=== PATIENT | female | born 1950 | race Caucasian/White ===

== ENCOUNTER 2016-12-30 13:43 | Emergency (ER) | payer BC ==
--- NOTE | 2016-12-30 16:55 | ED ORDER SUMMARY ---
..... Patient: KENDRICK WALDRON OrderSheet [facility] VisitID: [id number] [place] [address] 66y, F Registration Date/Time: 12/30/2016 ORDER SHEET Weight: 64.4 kg (stated) Allergies: No Known Drug Allergy GENERAL ORDERS: Blood Culture (No) (N/A) Urgent (14:55 12/30/2016 Jessica HUGHES) (Ack 15:01 Sloane) (15:11 EHassan R.N.) CBC w Diff Urgent (14:55 12/30/2016 Jessica HUGHES) (Ack 15:01 Sloane) (15:11 EHassan R.N.) CMP Urgent (14:55 12/30/2016 Jessica HUGHES) (Ack 15:01 Sloane) (15:11 EHassan R.N.) UA-Culture if indicated Urgent (14:55 12/30/2016 Jessica HUGHES) (Ack 15:01 Sloane) (15:10 EHassan R.N.) Amylase Urgent (14:55 12/30/2016 Jessica HUGHES) (Ack 15:01 Sloane) (15:11 EHassan R.N.) Lipase Urgent (14:55 12/30/2016 Jessica HUGHES) (Ack 15:01 Sloane) (15:11 EHassan R.N.) Lactate, Serum Urgent (14:55 12/30/2016 Jessica HUGHES) (Ack 15:01 Sloane) (15:11 EHassan R.N.) Culture, Strep Screen Urgent (14:55 12/30/2016 Jessica HUGHES) (15:10 Raulito R.N.) Blood Culture (No) (N/A) Urgent (16:49 12/30/2016 Jessica HUGHES) (17:09 Jessica HUGHES) (Cancelled: Other17:09 Jessica HUGHES) Lactate, Serum Urgent (16:49 12/30/2016 Jessica HUGHES) (18:52 Raulito R.N.) MEDICATION ORDERS: Tylenol PO 1,000 mg (NOW) (16:33 12/30/2016 Raulito Causey verbal order read back to Jessica HUGHES) (16:36 Raulito WillsNShawn) IV FLUIDS: Cefepime IV 2 gm/50mL (NOW) (16:49 12/30/2016 Jessica HUGHES) (Ack 17:32 Edilma Smith.NShawn) (18:54 Raulito WillsNShawn) IV NS : initial bolus 500 mL (1000 mL/hr), then 125 mL/hr for 4h (NOW); Urgent (18:41 12/30/2016 Jessica HUGHES) (19:51 Raulito R.NShawn) Vancomycin IV 1.5 gm/500 mL (NOW) (18:41 12/30/2016 Jessica HUGHES) (19:52 Raulito R.N.) ORDER SHEET NOTES: [Electronically signed by Jed Lopez MD (21:12 12/30/2016)] [Electronically signed by Aisha Potter R.N. (22:37 12/30/2016)] [Electronically locked/signed by Aisha Potter R.N. (22:37 12/30/2016)]
--- NOTE | 2016-12-30 16:55 | ED CLINICAL REPORT ---
Clinical Report - Physicians/Mid Levels [facility] [address] [place] [address] 12/30/2016 13:47 Patient: KENDRICK WALDRON Time Seen: 14:13. Arrived- By private vehicle. Historian- patient. HISTORY OF PRESENT ILLNESS Chief Complaint: FEVER and SORE THROAT. This started about 3 days ago and is still present and now worse. It was gradual in onset and has been constant and waxing/waning. (The patient was recently diagnosed with breast cancer. She is receiving care under the direction of Dr. Zarco at [facility] in [place]. Her colleague Dr. Castillo says that the patient is being treated with Adriamycin and Cytoxan. Her first dose of this was 9 days ago. Additionally he says that she is on Granix and that they should be her ninth dose. The patient reports that she has had a little bit of mild nausea since the chemotherapy. Otherwise she felt well until 3 days ago when she started to develop a sore throat and pain with swallowing. She has also had some chills and sweats and feels as though she has a mild fever.). REVIEW OF SYSTEMS The patient has had a severe sore throat . It has been associated with pain upon swallowing, fever, chills, fatigue and nausea. She has experienced sweats. No calf pain, chest pain, cough, difficulty breathing or pedal edema. No palpitations, abdominal pain, black stools, bloody stools or constipation. No diarrhea or vomiting. All systems otherwise negative, except as recorded above. PAST HISTORY PCP - ESTEBAN GIFFORD Oncology - Carolee. Problems: Thyroid Disease. Hypercholesterolemia. Arthritis. Hypertension. Cancer. Additional Surgeries: Biopsy. Port implant . Medications: Synthroid Oral. Lovastatin Oral. Tylenol Oral. Claritin Oral. LORazepam Oral 0.5 mg, as needed. Prochlorperazine Maleate Oral 10 mg, 3x a day as needed. Zofran Oral 8 mg, 4x a day as needed. Allergies: No Known Drug Allergy. SOCIAL HISTORY Never smoker. Alcohol use. (rare). No drug use. FAMILY HISTORY Cancer in first-degree relative (father). ADDITIONAL NOTES The nursing notes have been reviewed. PHYSICAL EXAM Vital Signs: 12/30/2016 14:12 BP: 143/76. HR: 120. RR: 16. O2 saturation: 100%. Temp: 99.1 F. Pain level now: 10. Have been reviewed. Appearance: Alert. Eyes: Pupils equal, round and reactive to light. ENT: Pharyngeal erythema (Including the soft palate.). Ulcerations present. Right-sided tonsillar exudate, swelling and erythema. Left-sided tonsillar exudate, swelling and erythema. Neck: Normal inspection. CVS: Normal heart rate and rhythm. Heart sounds normal. Respiratory: No respiratory distress. Breath sounds normal. Abdomen: No visible injury. Soft and nontender. Bowel sounds normal. No organomegaly. No mass. Back: Normal inspection. No CVA tenderness. Skin: Skin warm and dry. Normal skin color. Normal skin turgor. Extremities: Extremities exhibit normal ROM. No calf tenderness. No lower extremity edema. LABS, X-RAYS, AND EKG Laboratory Tests: UA-Culture if indicated: (MAHESH: 12/30/2016 15:06) ( MsgRcvd 12/30/2016 15:59) Final results Test Result Flag Units (Reference) URINE COLOR YELLOW URINE APPEARANCE CLEAR URINE GLUCOSE NEGATIVE (NEGATIVE) URINE BILIRUBIN NEGATIVE (NEGATIVE) URINE KETONE NEGATIVE (NEGATIVE) URINE SPECIFIC GRAVITY <= 1.005 L (1.010-1.030) URINE PH 6.5 (5.0-8.0) URINE PROTEIN NEGATIVE (NEGATIVE) URINE UROBILINOGEN 0.2 EU/dL (0.2-1.0) URINE NITRITE NEGATIVE (NEGATIVE) URINE BLOOD NEGATIVE (NEGATIVE) URINE LEUK ESTERASE NEGATIVE (NEGATIVE) URINE RBC 0-1 rbc/hpf (0-1) URINE WBC 0-1 wbc/hpf (0-1) URINE EPITHELIAL CELLS 0-1 EPI/hpf (0-5) URINE BACTERIA NONE SEEN (NONE SEEN) URINE COMMENT CULT NOT INDICATED 1+ AMORPHOUSURINE CULTURES ARE SET-UP BASED ON THE FOLLOWING CRITERIA:POSITIVE NITRITEPOSITIVE LEUKOCYTE ESTERASEGREATER THAN 10 WHITE BLOOD CELLSMODERATE (2+) OR GREATER BACTERIA CBC w Diff: (MAHESH: 12/30/2016 15:15) ( MsgRcvd 12/30/2016 16:11) Final results Test Result Flag Units (Reference) WHITE BLOOD COUNT 0.7 *L K/uL (4.5-11.5) K/uLCRITICAL RESULTS CALLEDCalled to BRIAN MORA, 12/30/16 1538Were 2 patient identifiers used? YWas the result read back? Y RED BLOOD COUNT 3.87 L M/uL (4.00-5.20) HEMOGLOBIN 12.0 gm/dL (12.0-16.0) HEMATOCRIT 35.2 L % (36.0-46.0) MEAN CELL VOLUME 91 fL (80-100) MEAN CORPUSCULAR HGB 31 pg (26-34) MEAN CORPUSCULAR HGB CONC 34 g/dL (31-37) RED CELL DISTRIBUTION WIDTH 11.8 % (11.6-14.8) PLATELET COUNT 78 L K/uL (150-400) POLY % 25 L % (50-75) BAND % 0 % (0-8) LYMPH 67 H % (25-40) MONO 8 % (3-14) EOSINOPHIL % 0 % (0-4) BASOPHIL % 0 % (0-2) METAMYELOCYTE % 0 % (0-1) MYELOCYTE 0 % (0-1) OTHER CELL TYPE 0 RBC MORPHOLOGY NORMOCYTIC~~NORMOCHROMIC Lactate, Serum: (MAHESH: 12/30/2016 15:15) ( [facility] [place] Final results Test Result Flag Units (Reference) LACTIC ACID 1.0 mmol/L (0.4-2.0) CMP: (MAHESH: 12/30/2016 15:15) ( [facility] [place] 12/30/2016 15:38) Final results Test Result Flag Units (Reference) GLUCOSE 97 mg/dL (70-110) BUN 10 mg/dL (7-18) CREATININE 0.8 mg/dL (0.6-1.3) Estimated GFR >60 mL/min Estimated GFR- >60 mL/min Note: Persistent reduction over 3 months in eGFR<60 mL/min/1.73 m2 defines CKD. Patients with eGFR values>=60 mL/min/1.73 m2 may also have CKD if evidence ofpersistent proteinuria. Additional information may be foundat [email or web address].org. SODIUM 136 mmol/L (136-145) POTASSIUM 3.5 mmol/L (3.5-5.1) CHLORIDE 97 L mmol/L (98-107) CARBON DIOXIDE 30 mmol/L (21-32) CALCIUM 9.4 mg/dL (8.5-10.1) TOTAL PROTEIN 7.5 g/dL (6.4-8.2) ALBUMIN 3.8 g/dL (3.3-5.0) BILIRUBIN, TOTAL 0.5 mg/dL (0.0-1.0) ALKALINE PHOSPHATASE 69 U/L (46-116) AST (SGOT) 17 U/L (15-37) ALT (SGPT) 32 U/L (12-78) LIPASE 241 U/L (73-393) AMYLASE 66 U/L (25-115) Culture, Strep Screen: (MAHESH: 12/30/2016 15:06) ( MsgRcvd 12/30/2016 15:23) Final results Test Result Flag Units (Reference) RAPID STREP SCREEN - THROAT DATE: 12/30/16 POSITIVE SCREEN: RAPID STREP SCREEN: POSITIVE FOR GROUP A STREP . PROGRESS AND PROCEDURES Course of Care: Patient is stable. Discussed case with hospitalist, (Dr. Jaja Zuniga at [facility]. In addition to the cefepime that the patient has received she also requests that we initiate vancomycin.). Reviewed test results and need for additional work-up. Agreed upon treatment plan, need for patient follow-up and decision to admit. Health care provider will see patient in hospital. Consult obtained from oncology. Dr. Castillo for Dr. Zarco. Case discussed. Phone consult only. Will see patient in the hospital. Patient/family counseled. Old medical records ordered. Old records unavailable. Disposition: Transferred. CLINICAL IMPRESSION Neutropenia due to chemotherapy. Breast cancer- female. Currently on chemotherapy. Acute streptococcal pharyngitis. Neutropenic fever. (Electronically signed by Jed Lopez MD 12/30/2016 21:12)
--- NOTE | 2016-12-30 16:55 | ED NURSING NOTES ---
Clinical Report - Nurses [facility] [address] [place] [address] 12/30/2016 13:47 Patient: KENDRICK WALDRON TRIAGE Triage time 1415. Acuity: LEVEL 4. Chief Complaint: FEVER. Alert. No acute distress. SHIELA COMA SCORE: Shiela Coma Scale: 15- eyes open spontaneously (4); best verbal response- oriented x 4 (5); best motor response- obeys commands (6). --14:27 Aisha Potter R.N. 14:12 12/30/16. BP: 143/76 (regular adult cuff) taken on the left arm, via an automated monitor, while sitting. HR: 120. RR: 16 (regular). O2 saturation: 100% on room air. Temp: 99.1 F (oral). Pain level now: 3/10. Additional comments: sore throat. --14:27 Aisha Potter R.N. Weight: 64.4 kg stated. Height/Length: 65 inches Per Patient. BMI: 23.7. --14:14 Aisha Potter R.N. Medications Zofran Oral 8 mg, 4x a day as needed. --14:19 Aisha Potter R.N. Prochlorperazine Maleate Oral 10 mg, 3x a day as needed. --14:20 Aisha Potter R.N. LORazepam Oral 0.5 mg, as needed. --14:20 Aisha Potter R.N. Claritin Oral. --14:21 Aisha Potter R.N. Tylenol Oral. --14:21 Aisha Potter R.N. Lovastatin Oral. --14:22 Aisha Potter R.N. Synthroid Oral. --14:22 Aisha Potter R.N. Allergies No Known Drug Allergy. --14:20 Aisha Potter R.N. Medication/allergy information source: the patient. --14:27 Aisha Potter R.N. History Arrived by private vehicle. Historian: patient. Primary physician (Dr. Delaney-primary Dr. Moss). ( Pt was sent here as per her oncologist Dr. Moss, pt states feeling a sore throat since Tuesday and woke up this morning with a slight fever 100.9, with chills. Denies any coughing, diarrhea, vomiting. Pt just initiated chemo last , port placed 2 weeks ago. Here for evaluation as recommended). This started today. She has had a sore throat and a headache. No cough, neck pain, abdominal pain, flank pain or difficulty with urination. No diarrhea. Treatment COLOR EXPERT: None. PAST MEDICAL HX: Cancer. She has a MediPort which was recently placed (2 weeks ago). Immunizations: up-to-date. SOCIAL HX: Never smoker. Occasional alcohol use. (a couple of times a year). No drug use. No recent travel. No infectious disease exposure. No known contact with a sick individual. ABUSE ASSESSMENT: No report of abuse. SELF HARM ASSESSMENT: A self harm assessment was performed. The patient answered "no" to the question "Do you have thoughts of harming or killing yourself?" and "Have you recently had thoughts about harming or killing others?". FALL RISK ASSESSMENT: Fall risk assessment completed. No fall risk identified. NUTRITIONAL RISK ASSESSMENT: The nutritional risk assessment revealed no deficiencies. FUNCTIONAL ASSESSMENT: Functional assessment: no impairments noted. LEARNING NEEDS ASSESSMENT: The learning needs assessment revealed no barriers. SKIN INTEGRITY ASSESSMENT: Skin integrity risk assessment completed. No skin integrity risk identified. --14: Aisha Potter R.N. PROBLEMS: Thyroid Disease. Hypercholesterolemia. Arthritis. Hypertension. --14: Aisha Potter R.N. ADDITIONAL SURGERIES: Biopsy. Port implant . --14:23 Aisha Potter R.N. Interventions ID band on patient. --14: Aisha Potter R.N. PHYSICAL ASSESSMENT Ambulatory to room. GENERAL / NEURO / PSYCH: Alert. Oriented X 4. Appears in no acute distress. HEENT: Pupils equal, round and reactive to light. Mucous membranes are pink. RESPIRATORY: Respirations not labored. Chest nontender. Breath sounds within normal limits. CVS: Capillary refill less than 2 seconds. Pulses within normal limits. GI / : Abdomen soft and nontender and normal bowel sounds. SKIN: Skin intact. Skin is warm and dry. Normal skin turgor. --14:28 Aisha Potter R.N. NURSING PROGRESS NOTES The initial plan of care for this patient has been created This plan of care was discussed with the patient. Patient gowned. Warming measures: blanket applied. Reassurance given. Two patient identifiers checked. Call light placed in reach. Side rails up x 1. Bed placed in lowest position. Brakes of bed on. Patient ready for evaluation- chart flagged. --14:29 Aisha Potter R.N. Critical value relayed to ED by 1540 PM Brii. Critical value received by Aisha Potter. WBC: .7. Critical value read back. Verified lab result and patient ID. ED physician notifed of critical value. No action is required. --15:41 Aisha Potter R.N. 15:43 12/30/16. BP: 134/75. HR: 110. RR: 12. O2 saturation: 99%. Temp: 98.7 F (oral). Pain level now: 12/03. --15:44 Aisha Potter R.N. Reassurance given. The patient is calm and resting quietly. Overall patient status is the same- she states feels the same. GENERAL / NEURO / PSYCH: The patient reports headache. RESPIRATORY: Denies difficulty breathing. GI / : Denies nausea. SKIN: Skin is warm. Call light placed in reach. Side rails up. Bed placed in lowest position. Brakes of bed on. --15:44 Aisha Potter R.N. 16:36 12/30/2016 Tylenol (Acetaminophen) PO Tablets 1000 mg given. Allergies verified and confirmed 5 rights. --16:36 Aisha Potter R.N. Reassurance given. The patient is calm. Overall patient status is the same- she states feels the same. ( Dr. Pickard (oncologist) paged multiple times, awaiting response. Pt aware of progress. Tylenol given as ordered for H/A). GENERAL / NEURO / PSYCH: The patient reports headache. Alert. Oriented X 4. SKIN: Skin is warm. Patient identifiers checked. Call light placed in reach. --16:37 Aisha Potter R.N. Reassurance given. Reassessment after medication administered. She is calm and has had no adverse reaction. Overall patient status is improved- she states feels better. ( Pt aware of plan to being transferred to another facility.). GENERAL / NEURO / PSYCH: Denies headache. Call light placed in reach. --17:15 Aisha Potter R.N. 17:14 12/30/16. BP: 140/79. HR: 117. RR: 15. O2 saturation: 97%. Temp: 98.8 F (oral). Pain level now: 0/10. --17:15 Aisha Potter R.N. 17:49 12/30/16. BP: 145/75 (regular adult cuff) taken on the right arm, while sitting. HR: 120. RR: 20. O2 saturation: 97% on room air. Temp: 98.8 F (oral). --17:49 Tamica Ortiz R.N. 17:33 antibiotic rx faxed to pharmacy. --17:58 Sunshine Bray R.N. Reassurance given. ( Left medport access with out no complications, flushed, great blood return, procedure done sterile, pt tolerated well, antibiotics infusing). Patient identifiers checked. Call light placed in reach. Side rails up. Bed placed in lowest position. --19:04 Aisha Potter R.N. 19:01 12/30/16. BP: 135/55 (regular adult cuff) taken on the left arm, via an automated monitor, while lying. HR: 87. RR: 15. O2 saturation: 100%. Temp: 98.8 F (oral). Pain level now: 0/10. --19:04 Aisha Potter R.N. 17:00 12/30/2016 Tylenol PO Response: no adverse reaction pain is improving. --19:52 Aisha Potter R.N. 18:54 12/30/2016 Site #1 accessed indwelling Mediport in the left subclavian using a 18g, inch needle following sterile technique; 1 attempt. Good blood return noted. --18:54 Aisha Potter R.N. 18:54 12/30/2016 Started 2 gm of Cefepime IVPB in bag #1 50 mL; at 100 mL/hr over 30 minute(s) via site #1 via IV pump. Allergies verified and confirmed 5 rights. IV patency established. IV site checked: no pain, redness, or swelling. IV flushed thoroughly pre- and post-medication administration. --18:54 Aisha Potter R.N. 19:00 12/30/2016 Started bag #1 999 mL IV Fluids IV NS (Saline); at 500 mL/hr over 1 hour(s) via site #1 via IV pump. Allergies verified and confirmed 5 rights. IV patency established. IV site checked: no pain, redness, or swelling. IV flushed thoroughly pre- and post-medication administration. --19:51 Aisha Potter R.N. 19:15 12/30/2016 Cefepime IVPB Discontinued: bag #1 completed. Total amount infused: 50 mL. IV patency established. IV site checked: no pain, redness, or swelling. IV flushed thoroughly. --19:52 Aisha Potter R.N. 19:52 12/30/2016 Started 1.5 gm of Vancomycin IVPB in bag #1 500 mL; at 150 mL/hr over 2.5 hour(s) via site #1 via IV pump. Allergies verified and confirmed 5 rights. IV patency established. IV site checked: no pain, redness, or swelling. IV flushed thoroughly pre- and post-medication administration. --19:52 Aisha Potter R.N. 19:53 12/30/2016 IV Fluids IV NS Discontinued: completed upon transfer. Total amount infused: 500 mL. IV patency established. IV site checked: no pain, redness, or swelling. IV flushed thoroughly. --19:53 Aisha Potter R.N. 20:00 12/30/2016 Vancomycin IVPB Continued: upon transfer at the rate of 125 mL/hr. 0 mL remaining bag #1. IV patency established. IV site checked: no pain, redness, or swelling. IV flushed thoroughly. --20:14 Aisha Potter R.N. DISPOSITION / DISCHARGE 20:00 12/30/2016 Site #1 reassessed; patent, infusing well and no signs of infection or infiltration. --20:12 Aisha Potter R.N. Departure time: 1999 PM. The goals identified in the patient's plan of care were met. Report was given to a nurse via a phone call. Report included patient's care, treatment, medications, reviewed medication reconcilliation, and condition (including any recent changes or anticipated changes). All questions were answered. Report was acknowledged and care was transferred. ( Transport given to BRIAN Nicolas from transport, port site intact, vanco initiated as ordered and will continue in transit, VSS.). FALL RISK ASSESSMENT: Fall risk assessment completed. No fall risk identified. --20:14 Aisha Potter R.N. 19:55 12/30/16. BP: 154/77 (regular adult cuff) taken on the left arm, via an automated monitor, while sitting. HR: 75. RR: 16. O2 saturation: 100%. Temp: 98.1 F (oral). Pain level now: 0/10. --20:14 Aisha Potter R.N. Transferred. Summary of care provided to transport team and transfer facility via paper ([facility]). ( Report given to BRIAN anderson at ED at transfer facility). Patient's personal items include: shirt, pants, undergarments, socks, shoes, glasses, purse and cell phone; items were placed in belongings bag and transported with the patient. --20:26 Aisha Potter R.N. Locked/Released at 12/30/2016 22:37 by Aisha Potter R.N.
--- NOTE | 2016-12-30 16:55 | ED ORDER SUMMARY ---
..... Patient: KENDRIKC WALDRON OrderSheet [facility] VisitID: [id number] [place] [address] 66y, F Registration Date/Time: 12/30/2016 ORDER SHEET Weight: 64.4 kg (stated) Allergies: No Known Drug Allergy GENERAL ORDERS: Blood Culture (No) (N/A) Urgent (14:55 12/30/2016 Jessica HUGHES) (Ack 15:01 Sloane) (15:11 EHassan R.N.) CBC w Diff Urgent (14:55 12/30/2016 Jessica HUGHES) (Ack 15:01 Sloane) (15:11 EHassan R.N.) CMP Urgent (14:55 12/30/2016 Jessica HUGHES) (Ack 15:01 Sloane) (15:11 EHassan R.N.) UA-Culture if indicated Urgent (14:55 12/30/2016 Jessica HUGHES) (Ack 15:01 Sloane) (15:10 EHassan R.N.) Amylase Urgent (14:55 12/30/2016 Jessica HUGHES) (Ack 15:01 Sloane) (15:11 EHassan R.N.) Lipase Urgent (14:55 12/30/2016 Jessica HUGHES) (Ack 15:01 Sloane) (15:11 EHassan R.N.) Lactate, Serum Urgent (14:55 12/30/2016 Jessica HUGHES) (Ack 15:01 Sloane) (15:11 EHassan R.N.) Culture, Strep Screen Urgent (14:55 12/30/2016 Jessica HUGHES) (15:10 Raulito R.N.) Blood Culture (No) (N/A) Urgent (16:49 12/30/2016 Jessica HUGHES) (17:09 Jessica HUGHES) (Cancelled: Other17:09 Jessica HUGHES) Lactate, Serum Urgent (16:49 12/30/2016 Jessica HUGHES) (18:52 Raulito R.N.) MEDICATION ORDERS: Tylenol PO 1,000 mg (NOW) (16:33 12/30/2016 Raulito Causey verbal order read back to Jessica HUGHES) (16:36 Raulito WillsNShawn) IV FLUIDS: Cefepime IV 2 gm/50mL (NOW) (16:49 12/30/2016 Jessica HUGHES) (Ack 17:32 Edilma Smith.NShawn) (18:54 Raulito WillsNShawn) IV NS : initial bolus 500 mL (1000 mL/hr), then 125 mL/hr for 4h (NOW); Urgent (18:41 12/30/2016 Jessica HUGHES) (19:51 Raulito R.NShawn) Vancomycin IV 1.5 gm/500 mL (NOW) (18:41 12/30/2016 Jessica HUGHES) (19:52 Raulito R.N.) ORDER SHEET NOTES: [Electronically signed by Jed Lopez MD (21:12 12/30/2016)] [Electronically signed by Aisha Potter R.N. (22:37 12/30/2016)] [Electronically locked/signed by Aisha Potter R.N. (22:37 12/30/2016)]
--- NOTE | 2016-12-30 16:55 | ED CLINICAL REPORT ---
Clinical Report - Physicians/Mid Levels [facility] [address] [place] [address] 12/30/2016 13:47 Patient: KENDRICK WALDRON Time Seen: 14:13. Arrived- By private vehicle. Historian- patient. HISTORY OF PRESENT ILLNESS Chief Complaint: FEVER and SORE THROAT. This started about 3 days ago and is still present and now worse. It was gradual in onset and has been constant and waxing/waning. (The patient was recently diagnosed with breast cancer. She is receiving care under the direction of Dr. Zarco at [facility] in [place]. Her colleague Dr. Castillo says that the patient is being treated with Adriamycin and Cytoxan. Her first dose of this was 9 days ago. Additionally he says that she is on Granix and that they should be her ninth dose. The patient reports that she has had a little bit of mild nausea since the chemotherapy. Otherwise she felt well until 3 days ago when she started to develop a sore throat and pain with swallowing. She has also had some chills and sweats and feels as though she has a mild fever.). REVIEW OF SYSTEMS The patient has had a severe sore throat . It has been associated with pain upon swallowing, fever, chills, fatigue and nausea. She has experienced sweats. No calf pain, chest pain, cough, difficulty breathing or pedal edema. No palpitations, abdominal pain, black stools, bloody stools or constipation. No diarrhea or vomiting. All systems otherwise negative, except as recorded above. PAST HISTORY PCP - ESTEBAN GIFFORD Oncology - Carolee. Problems: Thyroid Disease. Hypercholesterolemia. Arthritis. Hypertension. Cancer. Additional Surgeries: Biopsy. Port implant . Medications: Synthroid Oral. Lovastatin Oral. Tylenol Oral. Claritin Oral. LORazepam Oral 0.5 mg, as needed. Prochlorperazine Maleate Oral 10 mg, 3x a day as needed. Zofran Oral 8 mg, 4x a day as needed. Allergies: No Known Drug Allergy. SOCIAL HISTORY Never smoker. Alcohol use. (rare). No drug use. FAMILY HISTORY Cancer in first-degree relative (father). ADDITIONAL NOTES The nursing notes have been reviewed. PHYSICAL EXAM Vital Signs: 12/30/2016 14:12 BP: 143/76. HR: 120. RR: 16. O2 saturation: 100%. Temp: 99.1 F. Pain level now: 10. Have been reviewed. Appearance: Alert. Eyes: Pupils equal, round and reactive to light. ENT: Pharyngeal erythema (Including the soft palate.). Ulcerations present. Right-sided tonsillar exudate, swelling and erythema. Left-sided tonsillar exudate, swelling and erythema. Neck: Normal inspection. CVS: Normal heart rate and rhythm. Heart sounds normal. Respiratory: No respiratory distress. Breath sounds normal. Abdomen: No visible injury. Soft and nontender. Bowel sounds normal. No organomegaly. No mass. Back: Normal inspection. No CVA tenderness. Skin: Skin warm and dry. Normal skin color. Normal skin turgor. Extremities: Extremities exhibit normal ROM. No calf tenderness. No lower extremity edema. LABS, X-RAYS, AND EKG Laboratory Tests: UA-Culture if indicated: (MAHESH: 12/30/2016 15:06) ( MsgRcvd 12/30/2016 15:59) Final results Test Result Flag Units (Reference) URINE COLOR YELLOW URINE APPEARANCE CLEAR URINE GLUCOSE NEGATIVE (NEGATIVE) URINE BILIRUBIN NEGATIVE (NEGATIVE) URINE KETONE NEGATIVE (NEGATIVE) URINE SPECIFIC GRAVITY <= 1.005 L (1.010-1.030) URINE PH 6.5 (5.0-8.0) URINE PROTEIN NEGATIVE (NEGATIVE) URINE UROBILINOGEN 0.2 EU/dL (0.2-1.0) URINE NITRITE NEGATIVE (NEGATIVE) URINE BLOOD NEGATIVE (NEGATIVE) URINE LEUK ESTERASE NEGATIVE (NEGATIVE) URINE RBC 0-1 rbc/hpf (0-1) URINE WBC 0-1 wbc/hpf (0-1) URINE EPITHELIAL CELLS 0-1 EPI/hpf (0-5) URINE BACTERIA NONE SEEN (NONE SEEN) URINE COMMENT CULT NOT INDICATED 1+ AMORPHOUSURINE CULTURES ARE SET-UP BASED ON THE FOLLOWING CRITERIA:POSITIVE NITRITEPOSITIVE LEUKOCYTE ESTERASEGREATER THAN 10 WHITE BLOOD CELLSMODERATE (2+) OR GREATER BACTERIA CBC w Diff: (MAHESH: 12/30/2016 15:15) ( MsgRcvd 12/30/2016 16:11) Final results Test Result Flag Units (Reference) WHITE BLOOD COUNT 0.7 *L K/uL (4.5-11.5) K/uLCRITICAL RESULTS CALLEDCalled to BRIAN MORA, 12/30/16 1538Were 2 patient identifiers used? YWas the result read back? Y RED BLOOD COUNT 3.87 L M/uL (4.00-5.20) HEMOGLOBIN 12.0 gm/dL (12.0-16.0) HEMATOCRIT 35.2 L % (36.0-46.0) MEAN CELL VOLUME 91 fL (80-100) MEAN CORPUSCULAR HGB 31 pg (26-34) MEAN CORPUSCULAR HGB CONC 34 g/dL (31-37) RED CELL DISTRIBUTION WIDTH 11.8 % (11.6-14.8) PLATELET COUNT 78 L K/uL (150-400) POLY % 25 L % (50-75) BAND % 0 % (0-8) LYMPH 67 H % (25-40) MONO 8 % (3-14) EOSINOPHIL % 0 % (0-4) BASOPHIL % 0 % (0-2) METAMYELOCYTE % 0 % (0-1) MYELOCYTE 0 % (0-1) OTHER CELL TYPE 0 RBC MORPHOLOGY NORMOCYTIC~~NORMOCHROMIC Lactate, Serum: (MAHESH: 12/30/2016 15:15) ( [facility] [place] 15:48) Final results Test Result Flag Units (Reference) LACTIC ACID 1.0 mmol/L (0.4-2.0) CMP: (MAHESH: 12/30/2016 15:15) ( [facility] 12/30/2016 15:38) Final results Test Result Flag Units (Reference) GLUCOSE 97 mg/dL (70-110) BUN 10 mg/dL (7-18) CREATININE 0.8 mg/dL (0.6-1.3) Estimated GFR >60 mL/min Estimated GFR- >60 mL/min Note: Persistent reduction over 3 months in eGFR<60 mL/min/1.73 m2 defines CKD. Patients with eGFR values>=60 mL/min/1.73 m2 may also have CKD if evidence ofpersistent proteinuria. Additional information may be foundat www.kidney.org. SODIUM 136 mmol/L (136-145) POTASSIUM 3.5 mmol/L (3.5-5.1) CHLORIDE 97 L mmol/L (98-107) CARBON DIOXIDE 30 mmol/L (21-32) CALCIUM 9.4 mg/dL (8.5-10.1) TOTAL PROTEIN 7.5 g/dL (6.4-8.2) ALBUMIN 3.8 g/dL (3.3-5.0) BILIRUBIN, TOTAL 0.5 mg/dL (0.0-1.0) ALKALINE PHOSPHATASE 69 U/L (46-116) AST (SGOT) 17 U/L (15-37) ALT (SGPT) 32 U/L (12-78) LIPASE 241 U/L (73-393) AMYLASE 66 U/L (25-115) Culture, Strep Screen: (MAHESH: 12/30/2016 15:06) ( MsgRcvd 12/30/2016 15:23) Final results Test Result Flag Units (Reference) RAPID STREP SCREEN - THROAT DATE: 12/30/16 POSITIVE SCREEN: RAPID STREP SCREEN: POSITIVE FOR GROUP A STREP . PROGRESS AND PROCEDURES Course of Care: Patient is stable. Discussed case with hospitalist, (Dr. Jaja Zuniga at [facility]. In addition to the cefepime that the patient has received she also requests that we initiate vancomycin.). Reviewed test results and need for additional work-up. Agreed upon treatment plan, need for patient follow-up and decision to admit. Health care provider will see patient in hospital. Consult obtained from oncology. Dr. Castillo for Dr. Zarco. Case discussed. Phone consult only. Will see patient in the hospital. Patient/family counseled. Old medical records ordered. Old records unavailable. Disposition: Transferred. CLINICAL IMPRESSION Neutropenia due to chemotherapy. Breast cancer- female. Currently on chemotherapy. Acute streptococcal pharyngitis. Neutropenic fever. (Electronically signed by Jed Lopez MD 12/30/2016 21:12)
--- NOTE | 2016-12-30 22:37 | ED MAR SUMMARY ---
..... Medication Administration Record [facility] [address] [place] [address] Patient: KENDRICK WALDRON Visit ID: [id number] 66y, F Weight: 64.4 kg Height/Length: 65 in BMI: 23.7 ALLERGIES: No Known Drug Allergy Given 16:36 12/30/2016 Aisha Potter R.N. Medication Administered: TYLENOL [PO] (ACETAMINOPHEN), Dose: 1000 mg Tablets PO. Medication Ordered: Tylenol PO 1,000 mg (NOW). Start 18:54 12/30/2016 Aihsa Potter R.N., Stop 19:15 12/30/2016 Aisha Potter R.N. Medication Administered: CEFEPIME [IVPB], Dose: 2 gm IVPB over 30 minute(s), Rate: 100 mL/hr, Dispensed: 50 mL bag, Site: #1 left subclav. Medication Ordered: Cefepime IV 2 gm/50mL (NOW). Start 19:00 12/30/2016 Aisha Potter R.N., Stop 19:53 12/30/2016 Aisha Potter R.N. Medication Administered: IV NS (SALINE), Dose: IV Fluids over 1 hour(s), Rate: 500 mL/hr, Dispensed: 999 mL bag, Site: #1 left subclav. Medication Ordered: IV NS : initial bolus 500 mL (1000 mL/hr), then 125 mL/hr for 4h (NOW); Urgent. Start 19:52 12/30/2016 Aisha Potter R.N., Continued Upon Transfer 20:00 12/30/2016 Aisha Potter R.N. Medication Administered: VANCOMYCIN [IVPB], Dose: 1.5 gm IVPB over 2.5 hour(s), Rate: 150 mL/hr, Dispensed: 500 mL bag, Site: #1 left subclav. Medication Ordered: Vancomycin IV 1.5 gm/500 mL (NOW).
--- NOTE | 2016-12-30 22:37 | ED MAR SUMMARY ---
..... Medication Administration Record [facility] [address] [place] [address] Patient: KENDRICK WALDRON Visit ID: [id number] 66y, F Weight: 64.4 kg Height/Length: 65 in BMI: 23.7 ALLERGIES: No Known Drug Allergy Given 16:36 12/30/2016 Aisha Potter R.N. Medication Administered: TYLENOL [PO] (ACETAMINOPHEN), Dose: 1000 mg Tablets PO. Medication Ordered: Tylenol PO 1,000 mg (NOW). Start 18:54 12/30/2016 Aisha Potter R.N., Stop 19:15 12/30/2016 Aisha Potter R.N. Medication Administered: CEFEPIME [IVPB], Dose: 2 gm IVPB over 30 minute(s), Rate: 100 mL/hr, Dispensed: 50 mL bag, Site: #1 left subclav. Medication Ordered: Cefepime IV 2 gm/50mL (NOW). Start 19:00 12/30/2016 Aisha Potter R.N., Stop 19:53 12/30/2016 Aisha Potter R.N. Medication Administered: IV NS (SALINE), Dose: IV Fluids over 1 hour(s), Rate: 500 mL/hr, Dispensed: 999 mL bag, Site: #1 left subclav. Medication Ordered: IV NS : initial bolus 500 mL (1000 mL/hr), then 125 mL/hr for 4h (NOW); Urgent. Start 19:52 12/30/2016 Aisha Potter R.N., Continued Upon Transfer 20:00 12/30/2016 Aisha Potter R.N. Medication Administered: VANCOMYCIN [IVPB], Dose: 1.5 gm IVPB over 2.5 hour(s), Rate: 150 mL/hr, Dispensed: 500 mL bag, Site: #1 left subclav. Medication Ordered: Vancomycin IV 1.5 gm/500 mL (NOW).
--- NOTE | 2016-12-30 22:37 | ED DISCHARGE INSTRUCTIONS ---
Patient: KENDRICK WALDRON General Instructions [facility] VisitID: [id number] [address] [place] [address] 66y, F Registration Date/Time: 12/30/2016 Neutropenia due to chemotherapy. Breast cancer- female. Currently on chemotherapy. Acute streptococcal pharyngitis. Neutropenic fever. (Electronically signed by Jed Lopez MD 12/30/2016 21:12)
--- NOTE | 2016-12-30 22:37 | ED MED RECONCILIATION SUMMARY ---
Patient: KENDRICK WALDRON Medication Reconciliation Report [facility] VisitID: [id number] [address] [place] [address] 66y, F Registration Date/Time: 12/30/2016 Weight: 64.4 kg Height/Length: 65 in. BMI: 23.7 ALLERGIES: No Known Drug Allergy The patient's Home Medications are listed below: THE FOLLOWING MEDICATIONS NEED TO BE RECONCILED: Claritin Oral LORazepam Oral 0.5 mg Lovastatin Oral Prochlorperazine Maleate Oral 10 mg, 3x a day Synthroid Oral Tylenol Oral Zofran Oral 8 mg, 4x a day The source(s) of the original Home Medication information: patient The following Medications were given to the patient in the Emergency Department: Tylenol [PO] PO 1000 mg, administered: 12/30/2016 4:36:00 PM Cefepime [IVPB] IVPB bolus 0, then 2 gm 100 mL/hr, administered: 12/30/2016 6:54:00 PM IV NS IV Fluids bolus 0, then 500 mL/hr, administered: 12/30/2016 7:00:00 PM Vancomycin [IVPB] IVPB bolus 0, then 1.5 gm 150 mL/hr, administered: 12/30/2016 7:52:00 PM The following Medications were prescribed to the patient: None.
--- NOTE | 2016-12-30 22:37 | ED DISCHARGE INSTRUCTIONS ---
Patient: KENDRICK WALDRON General Instructions [facility] VisitID: [id number] [address] [place] [address] 66y, F Registration Date/Time: 12/30/2016 Neutropenia due to chemotherapy. Breast cancer- female. Currently on chemotherapy. Acute streptococcal pharyngitis. Neutropenic fever. (Electronically signed by Jed Lopez MD 12/30/2016 21:12)
--- NOTE | 2016-12-30 22:37 | ED MED RECONCILIATION SUMMARY ---
Patient: KENDRICK WALDRON Medication Reconciliation Report [facility] VisitID: [id number] [address] [place] [address] 66y, F Registration Date/Time: 12/30/2016 Weight: 64.4 kg Height/Length: 65 in. BMI: 23.7 ALLERGIES: No Known Drug Allergy The patient's Home Medications are listed below: THE FOLLOWING MEDICATIONS NEED TO BE RECONCILED: Claritin Oral LORazepam Oral 0.5 mg Lovastatin Oral Prochlorperazine Maleate Oral 10 mg, 3x a day Synthroid Oral Tylenol Oral Zofran Oral 8 mg, 4x a day The source(s) of the original Home Medication information: patient The following Medications were given to the patient in the Emergency Department: Tylenol [PO] PO 1000 mg, administered: 12/30/2016 4:36:00 PM Cefepime [IVPB] IVPB bolus 0, then 2 gm 100 mL/hr, administered: 12/30/2016 6:54:00 PM IV NS IV Fluids bolus 0, then 500 mL/hr, administered: 12/30/2016 7:00:00 PM Vancomycin [IVPB] IVPB bolus 0, then 1.5 gm 150 mL/hr, administered: 12/30/2016 7:52:00 PM The following Medications were prescribed to the patient: None.
== END 2016-12-30 20:00 | disposition short-term general hospital (02) ==
LOC: ED SRH 13:43
DX: J02.0 Streptococcal pharyngitis (principal); D70.1 Agranulocytosis secondary to cancer chemotherapy; T45.1X5A Adverse effect of antineoplastic and immunosuppressive drugs, initial encounter; C50.919 Malignant neoplasm of unspecified site of unspecified female breast; R50.81 Fever presenting with conditions classified elsewhere; Z95.828 Presence of other vascular implants and grafts; I10 Essential (primary) hypertension; E07.9 Disorder of thyroid, unspecified; E78.00 Pure hypercholesterolemia, unspecified; Z79.899 Other long term (current) drug therapy
CPT/HCPCS: 83498; 90004; 90065; 90074; 90100; 90154; 91643; 92031; 92235; 92530; 95059